=== PATIENT | male | born 1945 | race Caucasian/White ===

== ENCOUNTER → 2016-12-01 | Outpatient (CLI) | payer BC | END | disposition home or self-care (01) | LOC: RAD.S 11-27 12:11 | DX: Z01.818 Encounter for other preprocedural examination (principal); M79.605 Pain in left leg; M79.604 Pain in right leg; M79.672 Pain in left foot; M25.572 Pain in left ankle and joints of left foot; M19.072 Primary osteoarthritis, left ankle and foot ==